=== PATIENT | male | born 2000 | race African-American/Black ===

== ENCOUNTER → 2024-05-23 13:37 | Outpatient (REF) | payer BC, SELFPAY | LOC: RAD 13:37 | PROVIDERS: ATTENDING PHYSICIAN Surgery Plastic and Reconstructive Surgery; FAMILY PHYSICIAN Family Medicine | DX: D16.4 Benign neoplasm of bones of skull and face (principal) | CPT/HCPCS: 70486 ==

== ENCOUNTER 2024-05-29 06:23 | Day surgery (SDC) | payer BC, SELFPAY ==
[2024-05-23 13:33] VITALS: BMI 26.0
[2024-05-23 14:41] LABS: % Eosinophils 1.4 % (0-6); % Immature Granulocytes 0.3 % (0-0.5); % Lymphocytes 42.2 % (20.5-51.1); % Monocytes 12.4 % (1.7-9.3); % Neutrophils 43.7 % (42.2-75.2); Absolute Eosinophils 0.1 10^3/uL (0-0.7); Absolute Lymphocytes 1.5 10^3/uL (1.2-3.4); Absolute Monocytes 0.4 10^3/uL (0.1-0.6); Absolute Neutrophils 1.5 10^3/uL (1.4-6.5); Hematocrit 39.8 % (39.0-52.0); Hemoglobin 13.7 g/dL (13.0-18.0); Mean Corp Hgb Conc. 34.4 g/dL (33.0-37.0); Mean Corpuscular Hgb 29.9 pg (27.0-31.0); Mean Corpuscular Volume 86.9 fL (80.0-94.0); Mean Platelet Volume 9.6 fL (7.4-10.4); Nucleated Red Blood Cells % 0 % (-); Platelet Count 251 10^3/uL (130-400); Red Blood Cell Count 4.58 10^6/uL (4.70-6.10); Red Cell Dist. Width 11.3 % (11.5-14.5); White Blood Cell Count 3.5 10^3/uL (4.8-10.8)
[2024-05-23 15:10] LABS: ALT (SGPT) 21 U/L (0-50); AST (SGOT) 29 U/L (17-59); Albumin 4.4 g/dl (3.5-5.0); Alkaline Phosphatase 73 U/L (38-126); Blood Urea Nitrogen 11 mg/dl (9-20); Calcium 9.4 mg/dl (8.4-10.2); Carbon Dioxide 27 mmol/L (22-30); Chloride 101 mmol/L (98-107); Estimated Creatinine Clearance > 125 ml/min; Glucose 85 mg/dl (70-99); Potassium 4.6 mmol/L (3.5-5.1); Sodium 139 mmol/L (135-145); Total Bilirubin 0.4 mg/dl (0.2-1.3); Total Protein 7.6 g/dl (6.3-8.2); eGFR > 60.00
--- NOTE | 2024-05-24 14:03 | PTCARENOTE ---
Patients 10/ ECG abnormal- reviewed by Dr. Mckeon- no interventions required
[2024-05-29] VITALS (7 sets, daily range): BP systolic 129–143; BP diastolic 46–83; BMI 26.0
[2024-05-29] MEDS: TYLENOL 1000 MG PO (13:29)
[2024-05-29] MEDS: NORMOSOL-R/PLASMALYTE-A 1000 IV (13:36)
--- NOTE | 2024-05-29 14:52 | W.SUR.PREOP ---
Pre-Operative Surgical Note
-
I have examined this patient prior to the performance of the scheduled procedure.
The patient's condition is unchanged from the time of the current History and
Physical and the patient is able to undergo the scheduled procedure.
--- NOTE | 2024-05-29 16:40 | W.IMMPOSTOP ---
Surgical Immed Post Op Note
-
Primary Surgeon: BRITNEY Chavira MD
Assisting Surgeon:
Pre-op Diagnosis: frontal bone lesion
Post-op Diagnosis: same
Procedure Performed: excision of frontal bone lesion, complex closure
Anesthesia Type: General
Specimen / Cultures: Frontal bone lesion
Estimated Blood Loss: minimal
Complications: none
Operative Findings: trabeculated bony mass
--- NOTE | 2024-05-29 16:41 | OR.RPT ---
Operative Report
Operative Report
Date of surgery: 05/29/2024
Surgeon: BRITNEY Chavira MD
Preoperative diagnosis: Frontal bone lesion
Postoperative diagnosis: Same
Procedure:
1. Partial resection of bone lesion of left frontal calvarium
2. Complex closure 2 cm left scalp wound
anesthesia: General
Specimens: Left frontal bone lesion
Complications: None
EBL: Minimal
Indications for procedure: Patient is a 24-year-old male who presented with a left frontal bone lesion. This was prominent on physical exam and appeared to be getting bigger. CT scan was performed which showed a radiolucent intramedullary lesion.
While these frontal bone lesions are usually benign osteomas, the radiographic findings called into question the nature of the lesion. Alternatives to osteoma include enchondroma, intramedullary hemangioma, amongst other benign and otherwise
lesions. A conversation was had with the patient about the location and resultant scar on the forehead. Further conversation was had about the neurovascular bundle and potential for temporary or permanent nerve changes to the scalp. Given the
indeterminate nature of the lesion, recurrence may be likely. Goals of the procedure were to remove a portion of the lesion, improve contour of the external cortex, and allow for diagnostic determination. It was discussed that any inner cortex
involvement would require neurosurgery to be present to avoid intracranial extension. As such only the external portion would be addressed today. He understood these risks, desire to proceed and signed consents accordingly
Procedure detail: Patient was identified preoperatively and the surgical site was confirmed to be the left forehead. A 2.2 cm incision along a transverse righted overlying the lesion was measured. The bony lesion was also demarcated just over 2 x
2 cm. All questions were answered consents were confirmed. Patient was taken back the operating placed supine on table. Anesthesia was induced and the patient was prepped with Betadine solution used and draped in the usual sterile fashion.
Timeout for patient safety was performed was confirmed that preoperative antibiotics had been administered and bilateral SCDs were in place. Procedure began with the injection of a 50-50 mixture 1% lidocaine with epinephrine and half percent
Marcaine., 5 cc in total. 15 blade was then used to incise the marking in the transverse righted. Dissection continued with Bovie electrocautery into the subcutaneous tissues. Blunt dissection was then utilized to preserve any crossing nerve
fibers and this was taken down to periosteum. The periosteum was then incised and a Premier elevator was used to clear the periosteum off of the lesion and surrounding frontal bone. The external component of the lesion was clearly present with some
thinning of the external cortex. The external cortex was then and underlying tissue was friable in nature. An osteotome was used to remove the external surface of the lesion. Rasp was used to smooth the edges and improve the external contour.
Hemostasis was achieved with bone wax. Adequate specimen had been obtained for diagnosis. Hemostasis was confirmed and a complex closure of the 2.2 cm wound of the forehead was completed first closing periosteum with 4-0 Monocryl followed by
reapproximation of the frontalis muscle vertically and by layered skin closure. Nylons were placed superficially. Plan was made for suture removal in 1 week. Specimen was sent for pathology. Patient tolerated the procedure well was performed out
complication and all counts were correct. He was extubated taken the PACU for further care.
== END 2024-05-29 17:28 | disposition home or self-care (01) ==
LOC: SDS 06:23
PROVIDERS: ATTENDING PHYSICIAN Surgery Plastic and Reconstructive Surgery; FAMILY PHYSICIAN Family Medicine
DX: D18.02 Hemangioma of intracranial structures (principal); D16.4 Benign neoplasm of bones of skull and face; M89.9 Disorder of bone, unspecified
CPT/HCPCS: 11443; 13120; 88305; 88311; 36415; 80053; 85025; 93005